=== PATIENT | female | born 1945 | race Two or more races ===

== ENCOUNTER 2019-03-12 08:49 | Outpatient (CLI) | payer OTHER | END 2019-03-12 08:55 | disposition home or self-care (01) | LOC: SONOGRAMA 08:49 | DX: E04.2 Nontoxic multinodular goiter (principal) ==

== ENCOUNTER 2021-08-04 07:10 | Outpatient (CLI) | payer OTHER | END 2021-08-04 07:21 | disposition home or self-care (01) | LOC: MRI 07:10 | PROVIDERS: ATTEND Colon & Rectal Surgery | DX: K57.90 Diverticulosis of intestine, part unspecified, without perforation or abscess without bleeding (principal); D28.2 Benign neoplasm of uterine tubes and ligaments | CPT/HCPCS: 72197; A9575 ==

== ENCOUNTER 2021-08-04 07:58 | Outpatient (CLI) | payer OTHER | END 2021-08-04 08:02 | disposition home or self-care (01) | LOC: LAB 07:58 | PROVIDERS: ATTEND Radiology Diagnostic Radiology | DX: N28.89 Other specified disorders of kidney and ureter (principal) ==

== ENCOUNTER 2021-10-02 09:12 | Outpatient (CLI) | payer OTHER | END 2021-10-02 09:14 | disposition home or self-care (01) | LOC: SONOGRAMA 09:12 | PROVIDERS: ATTEND Pathology Anatomic Pathology & Clinical Pathology | DX: D21.5 Benign neoplasm of connective and other soft tissue of pelvis (principal) ==

== ENCOUNTER 2021-11-29 11:00 | Inpatient (IN) | payer OTHER ==
[~2021-11-29] VITALS: Ht 152.4 cm; Wt 59.0 kg
[2021-11-29] MEDS ORDERED: AVAPRO75 MG PO (15:15)
[2021-11-29] MEDS ORDERED: PROPRANOLOL HCL60 M1 PO (15:15)
[2021-11-29] MEDS ORDERED: METFORMIN HCL500 M3 PO (15:16)
[2021-11-29] MEDS ORDERED: ROSUVASTATIN CA10 MG PO (15:16)
[2021-11-29] MEDS ORDERED: CENTRUM CHEWAB1 EAC1 PO (15:16)
[2021-11-30] MEDS ORDERED: RISEDRONATE SO150 MG (11:56)
[2021-11-30] MEDS ORDERED: AMMONIUM LACTA385 GM (11:56)
== END 2021-12-02 16:10 | disposition home or self-care (01) | DRG 735 ==
LOC: SURH 11-30 07:00 → O/R 11-30 09:59 → SURH 11-30 11:00 → OB/GYN 11-30 16:40
PROVIDERS: ADMIT Specialist; ATTEND Specialist
PROC: 07TH0ZZ Resection of Right Inguinal Lymphatic, Open Approach (ICD-10-PCS; principal; 2021-11-30 07:00)
DX: C76.3 Malignant neoplasm of pelvis (principal); Z20.822 Contact with and (suspected) exposure to COVID-19